=== PATIENT | male | born 1945 | race African-American/Black ===

== ENCOUNTER 2017-08-18 20:04 | Emergency (ER) | payer MEDICARE, MEDICAID ==
[~2017-08-18] VITALS: Ht 172.7 cm; Wt 63.0 kg
[~2017-08-18 20:04] MED LIST: ASPI-1159 PO; DUTA0.5C2 PO; IBUP-2030 PO; METH10TA2 PO; OLME1TAB18 PO; TAMS-11 PO
[2017-08-18 23:25] LABS: CHLORIDE 106 mEq/L (98-107)
[2017-08-18 23:27] LABS: BASOPHILS % 0.2 % (0.0-2.0); EOSINOPHILS % 1.2 % (0.0-5.0); HEMATOCRIT. 36.7 % (42.0-52.0); HEMOGLOBIN. 12.5 g/dL (14.0-18.0); LYMPHOCYTES % 27.8 % (20.0-50.0); MEAN CORPUSCULAR HEMOGLOBIN 29.3 pg (28.0-32.0); MEAN CORPUSCULAR VOLUME 85.8 fL (80.0-94.0); MEAN PLATELET VOLUME 10.2 fl (7.4-10.4); MONOCYTES % 6.3 % (2.0-8.0); NEUTROPHILS % 64.5 % (40.0-76.0); PLATELET 254 x1000/uL (130-400); RED BLOOD CELL COUNT 4.27 mill/uL (4.7-6.1); RED CELL DISTRIBUTION WIDTH 14.6 % (11.6-14.6)
[2017-08-18 23:28] LABS: INR 1.1; PROTHROMBIN TIME 11.9 sec (9.4-11.6)
[2017-08-19 04:30] VITALS: BP 128/80
== END 2017-08-19 06:52 | disposition home or self-care (01) ==
LOC: ER 20:04
DX: M26.609 Unspecified temporomandibular joint disorder, unspecified side (principal); R68.84 Jaw pain; I10 Essential (primary) hypertension; N40.0 Benign prostatic hyperplasia without lower urinary tract symptoms; J40 Bronchitis, not specified as acute or chronic; J18.9 Pneumonia, unspecified organism; K02.9 Dental caries, unspecified; Z87.891 Personal history of nicotine dependence; Z79.82 Long term (current) use of aspirin
CPT/HCPCS: 36415; 70100; 71045; 80053; 83880; 84484; 85025; 85610; 93005; 99285